=== PATIENT | male | born 1990 | race Caucasian/White ===

== ENCOUNTER 2025-01-06 10:20 | Emergency (ER) | payer OTHER, SELFPAY ==
--- NOTE | ~2025-01-06 | XR_ITS ---
EXAMINATION: XR chest 2V 01/06/2025 10:44 INDICATION: Dizziness and lightheadedness PROCEDURE: 2 view chest COMPARISON: 08/24/2013 FINDINGS: The lungs are clear. The cardiomediastinal silhouette is within normal limits. There are no pleural effusions. There is no pneumothorax suspected. IMPRESSION: 1: NO ACUTE CARDIOPULMONARY DISEASE. Reviewed, dictated and finalized at location A.
[2025-01-06 10:25] VITALS: BP 164/110; PULSE 80; RESP 16; TEMP 36.6; O2SAT 100
--- NOTE | 2025-01-06 10:27 | ECG_ITS ---
Test Date: 2025-01-06 10:29:05 Measurements Intervals [place] Rate: 88 P: 50 IN: 157 QRS: 35 QRSD: 85 T: 49 QT: 376 QTc: 456 Interpretive Statements SINUS RHYTHM POSSIBLE LEFT ATRIAL ENLARGEMENT BORDERLINE T WAVE ABNORMALITY- ANTERIOR LEADS BASELINE ARTIFACT- I, III, AVR, AVL, AVF BORDERLINE ECG No previous ECG available for comparison Electronically Signed On 01-06-2025 10:38:18 CDT by Antony Aldridge D.O.
[2025-01-06 10:37] LABS: Hematocrit 44.0 % (42.0-52.0); Hemoglobin 15.5 g/dL (14.0-18.0); Immature Granulocyte Percent A 0.4 % (0-0.5); Lymphocytes Absolute Auto 2.08 K/mm3 (0.9-3.2); Mean Corpuscular HGB Conc 35.2 g/dl (32-36); Mean Corpuscular Hemoglobin 29.9 pg (26-34); Mean Corpuscular Volume 84.9 fl (80-100); Nucleated Red Blood Cells Absolute Auto 0.000 K/mm3 (0.0-0.012); Nucleated Red Blood Cells Perc 0.0 % (0.0-0.2); Platelet Count Result 203 k/mm3 (150-375); Red Blood Count 5.18 M/mm3 (4.6-6.20); White Blood Count 7.8 K/mm3 (4.5-10.0)
[2025-01-06 10:45] VITALS: BP 154/107; PULSE 83; RESP 14; O2SAT 100
[2025-01-06 11:01] VITALS: BP 145/97; PULSE 89; RESP 18; O2SAT 100
[2025-01-06 11:08] LABS: Alanine Aminotransferase 48 U/L (6-50); Albumin Level 4.6 g/dL (3.5-5.1); Alkaline Phosphatase 165 U/L (38-126); Anion Gap 8 mmol/L (4-12); Aspartate Amino Transferase 56 U/L (17-59); Bilirubin,Total 2.5 mg/dL (0.2-1.3); Blood Urea Nitrogen 11 mg/dL (9-20); Calcium 9.4 mg/dL (8.4-10.2); Carbon Dioxide 24 mmol/L (22-30); Chloride 96 mmol/L (98-107); Estimated CRCL calculation 129 ml/min; Estimated Glomerular Filt Rate > 60; Glucose 106 mg/dL (65-110); Potassium 4.0 mmol/L (3.4-5.0); Sodium 128 mmol/L (137-145); Total Protein 8.5 g/dL (6.3-8.2)
[2025-01-06 11:31] VITALS: BP 148/95; PULSE 93; RESP 16; TEMP 36.6
[2025-01-06] MEDS: SODIUM CHLORIDE 0.9% IV 1,000 ML 999 ML IV CONT (11:37)
[2025-01-06] MEDS: MECLIZINE HCL 25 MG TABLET PO (11:37)
[2025-01-06 11:39] LABS: Add Urine Microscopic? NO; Appearance Urine Clear (Clear); Glucose Urine UA Negative (Negative); Leukocyte Esterase Ur Negative LEU/UL (Negative); Nitrate Urine Negative (Negative); Specific Grav Ur 1.006 (1.001-1.035)
--- OUTSIDE RECORDS SUMMARY | 2025-01-06 12:08 | XMS_ITS | Clinical Summary ---
Author Organization [facility] Address [address] [place] [address] Phone Care Team Providers Care Slag Production Worker Name Role Phone Carl Brooke MD Primary Care Provider [phone] Allergies Active Allergy Reactions Criticality Noted Date Comments Dextromethorphan Hbr Anaphylaxis High 06/28/2014 Xz-Pgamzdjvfi-Ipyalxzutfsah Anaphylaxis 019 Dextromethorphan Polistirex Er Anaphylaxis 01/02 Medications ondansetron (ZOFRAN-ODT) 4 MG TABLET DISPERSIBLE Take 1 Tablet by mouth every 6 hours as needed for Nausea - 1st line. 10 Tablet 2 Active Additional Information Patient not taking.Reported on 06/01/2024 senna (SENOKOT) 8.6 MG Tablet Take 1 Tablet by mouth 2 times daily as needed for Constipation - 1st line. 30 Tablet 2 Active Additional Information Patient not taking.Reported on 06/01/2024 metoprolol tartrate (LOPRESSOR) 25 MG Tablet Take 1 Tablet by mouth 2 times daily. 180 Tablet 5 Active Active Problems Problem Noted Date Diagnosed Date PSVT (paroxysmal supraventricular tachycardia) 1 07/06/2021 Elevated LFTs 05/05/2022 Tobacco dependence syndrome 05/05/2022 Anxiety 05/05/2022 Panic attacks 05/05/2022 Elevated d-dimer 05/05/2022 Dental abscess 05/05/2022 HTN (hypertension) 07/06/2014 Immunizations Immunization Administration Dates Next Due Influenza Vaccine 06/03/2012 TDAP Vaccine 10/01/2013 Family History Medical History Relation Name Comments Cancer Maternal Grandmother Hypertension Mother Relation Name Status Comments Maternal Grandmother Mother Social History Tobacco Use Types Packs/Day Years Used Date Smoking Tobacco: Former Smokeless Tobacco: Never Tobacco Cessation:Counseling Given: Not Answered Alcohol Use Standard Drinks/Week Comments No 0 (1 standard drink = 0.6 oz pur e alcohol) Sex and Gender Information Value Date Recorded Sex Assigned at Not on file Legal Sex Male 12:17 AM CDT Gender Identity Not on file Sexual Orientation Not on file Last Filed Vital Signs Vital Sign Reading Time Taken Comments Blood Pressure 138/99 09/28/2024 1:45 PM CDT Pulse 82 09/28/2024 1:45 PM CDT Temperature 36.1 C (96.9 F) 09/28/2024 10:13 AM CDT Respiratory Rate 18 09/28/2024 1:45 PM CDT Oxygen Saturation 100% 09/28/2024 1:45 PM CDT Inhaled Oxygen Concentration - - Weight 127 kg (280 lb) 09/28/2024 10:13 AM CDT Height 182.9 cm (6') 09/28/2024 10:13 AM CDT Body Mass Index 37.97 09/28/2024 10:13 AM CDT Plan of Treatment Health Maintenance Due Date Last Done Comments Human Papillomavirus (HPV) Immunization (1 - 3-dose SCDM series) 2017 SARS-COV-2 Immunization ( - season) 2024 Influenza Immunization (#1) 2025 06/03/2012 Td Immunization Every 10 Years (Adults With 1 Tdap) 02/17/2034 02/18/2024, 11/29/2014, 10/01/2013 Respiratory Syncytial Virus (RSV) Immunization (Adult) (1 - 1-dose 75+ series) 2065 Hepatitis B Immunization Completed 002, 03/05/2001, 01/14/2001 Hepatitis C Virus (HCV) Screening Completed 07/06/2014 DTaP/Tdap/Td Immunization Discontinued 2023, 11/29/2014, 10/01/2013, Additional history exists Meningococcal Immunization (ACWY) Aged Out No longer eligible based on patient's age to complete this topic Pneumococcal Immunization Combined Aged Out No longer eligible based on patient's age to complete this topic Rotavirus Immunization Aged Out No lo nger eligible based on patient's age to complete this topic Insurance MEDICAID [employer] Advance Directives * Full Code (Latest Code Status on File) Date Activated Date Inactivated Comments 05/05/2022 8:38 PM 05/06/2022 2:31 PM CPR-Full [place] atment: FULL ARREST: Attempt Resuscitation/CPR wit intubation and mechanical ventilation. PRE-ARREST: Use entire range of life support measures to stabilize the patient. Care Teams Slag Production Worker Relationship Specialty Start Date End Date Carl Brooke MD [address] [place] [address] [place] [address] PCP - General Foundry Technician 09/28/24
--- NOTE | 2025-01-06 12:47 | ED.GENADULT ---
HPI - General Adult General Chief complaint: Recheck/Abnormal Lab/Rx Stated complaint: htn, didn't take meds this AM Time Seen by Provider: 01/06/25 10:25 History of Present Illness HPI narrative: Patient is a 34-year-old male who presents ER with dizziness. Has been lightheaded throughout the day and worse with turning his head and movements. Associated with nausea. No vomiting. Has not taken his blood pressure medicine today. Related Data Allergies Allergy/AdvReac Type Severity Reaction Status Date / Time doxylamine Allergy Verified 08/24/13 10:06 DEXTROMETHORPHAN HBR Allergy Uncoded 08/24/13 10:06 PSEUDOEPHEDRINE HCL Allergy Uncoded 08/24/13 10:06 Review of Systems Review of Systems: All systems reviewed & are unremarkable except as noted in HPI and below Constitutional: Constitutional: Reports no additional constitutional complaints ENT: Reports system reviewed and no additional complaints, except as documented Cardiovascular: Cardiovascular: Reports no additional cardiovascular complaints Respiratory: Respiratory: Reports no additional respiratory complaints Gastrointestinal: Gastrointestinal: Reports no additional gastrointestinal complaints Genitourinary: Genitourinary: Reports no additional male genitourinary complaints COUNT INCLUDES THE [facility] Past Medical History Medical History (Updated 01/06/25 @ 13:28 by Harley Cornejo MD) Healthy adult male Exam Narrative: GENERAL: Well-appearing, well-nourished, and in no acute distress. HEAD: Normocephalic, atraumatic. EYES: PERRL and EOMI. Strabismus left eye with lack of lateral movement. ENT: Mucous membranes moist. Cerumen impaction bilaterally, with removal of the eardrums are normal. CHEST: Clear to auscultation. No respiratory distress. HEART: Regular rate and rhythm. Normal peripheral pulses. ABDOMEN: Soft, nontender, nondistended. EXTREMITIES: Normal range of motion. No edema. SKIN: Warm, dry, no rash. NEURO: Alert and oriented x3. PSYCH: Normal mood and affect. Course Course Emergency Course: Dizziness improved but still mild with standing. Some cerumen removed. Appropriate for discharge home. Vital Signs Vital signs: Vital Signs Temperature 97.9 F 01/06/25 10:25 Pulse Rate 80 01/06/25 10:25 Respiratory Rate 16 01/06/25 10:25 Blood Pressure 164/110 H 01/06/25 10:25 Pulse Oximetry 100 01/06/25 10:25 Oxygen Delivery Room Air 01/06/25 10:25 Temperature 97.9 F 01/06/25 11:31 Pulse Rate 93 01/06/25 11:31 Respiratory Rate 16 01/06/25 11:31 Blood Pressure 148/95 H 01/06/25 11:31 Pulse Oximetry 100 01/06/25 11:01 Oxygen Delivery Room Air 01/06/25 10:25 Medical Decision Making Vital Signs Vital Signs: Vital Signs Temperature 97.9 F 01/06/25 10:25 Pulse Rate 80 01/06/25 10:25 Respiratory Rate 16 01/06/25 10:25 Blood Pressure 164/110 H 01/06/25 10:25 Pulse Oximetry 100 01/06/25 10:25 Oxygen Delivery Room Air 01/06/25 10:25 Temperature 97.9 F 01/06/25 11:31 Pulse Rate 93 01/06/25 11:31 Respiratory Rate 16 01/06/25 11:31 Blood Pressure 148/95 H 01/06/25 11:31 Pulse Oximetry 100 01/06/25 11:01 Oxygen Delivery Room Air 01/06/25 10:25 Lab Data 01/06/25 10:32 01/06/25 10:32 Labs: Lab Results 01/06/25 01/06/25 Range/Units 10:32 11:07 WBC 7.8 (4.5-10.0) K/mm3 RBC 5.18 (4.6-6.20) M/mm3 Hgb 15.5 (14.0-18.0) g/dL Hct 44.0 (42.0-52.0) % MCV 84.9 (80-100) fl MCH 29.9 (26-34) pg MCHC 35.2 (32-36) g/dl RDW 12.1 (11.5-14.5) % Plt Count 203 (150-375) k/mm3 MPV 10.4 (7.4-10.4) fl Immature Gran % (Auto) 0.4 (0-0.5) % Neut % (Auto) 63.6 (45.5-73.1) % Lymph % (Auto) 26.7 (18.3-44.2) % Ness % (Auto) 6.3 (2.6-8.5) % Eos % (Auto) 2.2 (0-4.4) % Baso % (Auto) 0.8 (0.2-1.2) % Lymph # (Auto) 2.08 (0.9-3.2) K/mm3 Ness # (Auto) 0.5 (0.1-0.6) K/mm3 Eos # (Auto) 0.2 (0-0.3) K/mm3 Baso # (Auto) 0.1 (0.0-0.1) K/mm3 Abs Immat Gran (auto) 0.03 (0.00-0.031) K/mm3 Absolute Neuts (auto) 5.0 (1.3-6.7) K/mm3 Absolute Nucleated RBC 0.000 (0.0-0.012) K/mm3 Nucleated RBC % 0.0 (0.0-0.2) % Sodium 128 L (137-145) mmol/L Potassium 4.0 (3.4-5.0) mmol/L Chloride 96 L (98-107) mmol/L Carbon Dioxide 24 (22-30) mmol/L Anion Gap 8 (4-12) mmol/L BUN 11 (9-20) mg/dL Creatinine 0.92 (0.7-1.3) mg/dL Estim Creat Clear Calc 129 ml/min Estimated GFR > 60 (59 - ) Glucose 106 (65-110) mg/dL Calcium 9.4 (8.4-10.2) mg/dL Total Bilirubin 2.5 H (0.2-1.3) mg/dL AST 56 (17-59) U/L ALT 48 (6-50) U/L Alkaline Phosphatase 165 H (38-126) U/L Total Protein 8.5 H (6.3-8.2) g/dL Albumin 4.6 (3.5-5.1) g/dL Urine Color Yellow (Yellow) Urine Appearance Clear (Clear) Urine pH 6.0 (5.0-9.0) Ur Specific [place] 1.006 (1.001-1.035) Urine Protein Negative (Negative) mg/dL Urine Glucose (UA) Negative (Negative) mg/dL Urine Ketones Negative (Negative) mg/dL Ur Blood (Man) Negative (Negative) Urine Nitrate Negative (Negative) Urine Bilirubin Negative (Negative) Urine Urobilinogen 0.2 (<2.0) mg/dL Leukocyte Esterase Rfl Negative (Negative) RAINER/UL Imaging Data Radiologist's impression: ITS Impressions Chest X-Ray 01/06/25 11:07 IMPRESSION: 1: NO ACUTE CARDIOPULMONARY DISEASE. Discharge Plan Discharge Clinical Impression: Vertigo Patient Disposition: Still a Patient Condition: Stable Instructions: Vertigo (ED) Additional Instructions: Return ER if you have worsening dizziness, you cannot keep down food water, you lose consciousness, or have additional concerns. Patient Language: Malagasy Follow-up/Referrals: Mendy,MD Carl [Primary Care Provider] - 1 Week
[2025-01-06 13:46] VITALS: BP 141/98; PULSE 95; RESP 18; TEMP 36.8; O2SAT 99
== END 2025-01-06 13:50 | disposition home or self-care (01) ==
PROVIDERS: Emergency Provider Emergency Medicine; PCP Family Medicine
DX: R42 Dizziness and giddiness (principal); I10 Essential (primary) hypertension; R94.31 Abnormal electrocardiogram [ECG] [EKG]
CPT/HCPCS: 36415; 71046; 80053; 81003; 85025; 93005; 96360; 99283; A9270; J7030